=== PATIENT | male | born 1975 | race Caucasian/White ===

== ENCOUNTER 2022-05-18 08:17 | Outpatient (CLI) | payer OTHER, SELFPAY ==
--- NOTE | ~2022-05-18 | XR_ITS ---
EXAMINATION: XR abdomen/kub 1V DATE: 05/18/2022 08:33 INDICATION: Right flank pain. TECHNIQUE: A supine view of the abdomen on 2 radiographs was obtained. COMPARISON: Abdomen radiograph 07/08/2019, CT abdomen and pelvis 11/21/2013 FINDINGS: There are no dilated loops of bowel. Again seen is a 2 mm phlebolith in right pelvis. There are 3 mm and 4 mm calcifications in right pelvis that are new from 06/23/2019. There are 2 calcifica tions overlying right kidney measuring up to 5 mm. There are multiple calcifications overlying left k idney measuring up to 5 mm. IMPRESSION: 1. 3 mm and 4 mm calcifications in right pelvis that are new from 06/23/2019, which may be phlebolith s or distal ureteral stones. 2. Calcifications overlying the kidneys bilaterally that may be kidney stones. Reviewed, dictated and finalized at location B. IMPRESSION: 1. 3 mm and 4 mm calcifications in right pelvis that are new from 06/23/2019, w hich may be phleboliths or distal ureteral stones. 2. Calcifications overlying the kidneys bilaterally that may be kidney stones.
== END 2022-05-18 08:18 | disposition home or self-care (01) ==
PROVIDERS: PCP Family Medicine Sports Medicine; Visit Provider Urology
DX: R10.9 Unspecified abdominal pain (principal)
CPT/HCPCS: 74018

== ENCOUNTER → 2023-05-24 14:44 | Outpatient (CLI) | payer OTHER, SELFPAY ==
--- NOTE | ~2023-05-24 | XR_ITS ---
XR abdomen/kub 1V 05/24/2023 15:05 Indication: Kidney stones Procedure: KUB Comparison: 05/18/2022 Findings: There are multiple calcifications overlying the left kidney and left renal pelvis, consiste nt with renal stones. Bowel gas pattern nonobstructive with moderate colonic fecal loading. There is a stone overlying the lower pole of the right kidney. There is calcification at the L3 level on the l eft, possibly UPJ stone. Moderate lumbar spondylosis. Impression: 1: Bilateral nephrolithiasis with possible left UPJ stone. Reviewed, dictated and finalized at location A. Impression: 1: Bilateral nephrolithiasis with possible left UPJ stone.
== END ==
PROVIDERS: PCP Family Medicine; Visit Provider Nurse Practitioner Adult Health
DX: N20.0 Calculus of kidney (principal)
CPT/HCPCS: 74018

== ENCOUNTER 2023-05-25 01:22 | Emergency (ER) | payer OTHER, SELFPAY ==
--- NOTE | ~2023-05-25 | CT_ITS ---
EXAMINATION: CT abdomen pelvis wo con DATE: 05/25/2023 02:23 INDICATION: Flank pain. TECHNIQUE: Computed tomography (CT) of the abdomen and pelvis was performed without intravenous contr ast. Automated exposure control and iterative reconstruction technique were employed. The dose-length product was 1799.74 mGy-cm. COMPARISON: CT abdomen and pelvis 11/21/2013 FINDINGS: The visualized portions of the lung bases demonstrate minimal atelectasis. A calcified righ t lung nodule is consistent with old granulomatous disease. No pleural effusion. The heart size is no rmal. No pericardial effusion. There is a small sliding hiatal hernia. Partially visualized is mild l eft gynecomastia. The liver, gallbladder, and pancreas are normal. Calcifications in the spleen are c onsistent with old granulomatous disease. The adrenal glands are normal. There are cysts in the kidne ys measuring up to 2.7 cm on the left. There is cortical thinning of the kidneys. There are 4 stones in right kidney measuring up to 5 mm. There are 7 stones in left kidney measuring up to 5 mm. There i s mild left hydronephrosis. There is asymmetric edema around left kidney. There is a 6 mm stone in pr oximal left ureter. The prostate is mildly enlarged. There are no dilated loops of bowel. The appendi x is normal. There are no pathologically enlarged lymph nodes. There is no free intraperitoneal fluid . There is mild thoracic spondylosis and severe lumbar spondylosis. IMPRESSION: 1. 6 mm stone in proximal left ureter with mild left hydronephrosis. 2. Bilateral nonobstructing kidney stones. 3. Small sliding hiatal hernia. Reviewed, dictated and finalized at location E.
[2023-05-25 01:50] VITALS: BP 182/99; PULSE 74; RESP 16; TEMP 36.2; O2SAT 100
[2023-05-25 02:02] LABS: Alanine Aminotransferase 36 U/L (6-50); Albumin Level 4.7 g/dL (3.5-5.1); Alkaline Phosphatase 75 U/L (38-126); Anion Gap 9 mmol/L (8-16); Aspartate Amino Transferase 29 U/L (17-59); Bilirubin,Total 1.7 mg/dL (0.2-1.3); Blood Urea Nitrogen 22 mg/dL (9-20); Carbon Dioxide 27 mmol/L (22-30); Chloride 100 mmol/L (98-107); Estimated CRCL calculation 115 ml/min; Estimated Glomerular Filt Rate > 60; Glucose 127 mg/dL (65-110); Potassium 3.9 mmol/L (3.4-5.0); Sodium 136 mmol/L (137-145)
[2023-05-25 04:54] LABS: Appearance Urine Clear (Clear); Bacteria Urine None Seen /hpf; Bilirubin Urine Negative (Negative); Blood Urine 1+ (Negative); Color Urine Yellow (Yellow); Glucose Urine UA Negative (Negative); Ketones Urine Trace mg/dL (Negative); Leukocyte Esterase Ur Negative LEU/UL (Negative); Nitrate Urine Negative (Negative); Non Pathogenic Casts 0-2; Protein Urine Negative (Negative); RBC Urine 0-2 /hpf (0-2); Specific Grav Ur 1.018 (1.001-1.035); Squamous Epithelial Cell Urine None seen /hpf (Few); Urobilinogen Urine 0.2 mg/dL (<2.0); WBC Urine 0-5 /hpf; pH Urine 5.5 (5.0-9.0)
[2023-05-25 05:13] LABS: Add Urine Microscopic? YES
[2023-05-25 06:17] VITALS: BP 161/95; PULSE 99; RESP 14; O2SAT 98
[2023-05-25 06:25] LABS: Basophils Percent Auto 0.3 % (0.2-1.2); Eosinophils Percent Auto 0.2 % (0-4.4); Hemoglobin 15.3 g/dL (14.0-18.0); Immature Granulocyte Absolute 0.05 K/mm3 (0.00-0.031); Immature Granulocyte Percent A 0.5 % (0-0.5); Lymphocytes Absolute Auto 0.93 K/mm3 (0.9-3.2); Lymphocytes Percent Auto 8.6 % (18.3-44.2); Mean Corpuscular HGB Conc 33.3 g/dl (32-36); Mean Corpuscular Hemoglobin 29.5 pg (26-34); Mean Corpuscular Volume 88.8 fl (80-100); Mean Platelet Volume 9.8 fl (7.4-10.4); Monocytes Absolute Auto 0.6 K/mm3 (0.1-0.6); Monocytes Percent Auto 5.9 % (2.6-8.5); Neutrophils Absolute Auto 9.2 K/mm3 (1.3-6.7); Neutrophils Percent Auto 84.5 % (45.5-73.1); Platelet Count Result 242 k/mm3 (150-375); Red Blood Count 5.18 M/mm3 (4.6-6.20); Red Cell Distribution Width 11.8 % (11.5-14.5); White Blood Count 10.8 K/mm3 (4.5-10.0)
[2023-05-25 07:16] VITALS: BP 179/110; PULSE 78; RESP 20; O2SAT 100
--- NOTE | 2023-05-25 07:43 | ED.ABDPAIN ---
HPI - Abdominal Pain General Chief Complaint: Abdominal Pain Stated Complaint: flank pain, kidney stone Time Seen by Provider: 05/25/23 06:55 History of Present Illness HPI narrative: 47-year-old male with history of kidney stones presenting to the emergency department after being referred from the urology office for suspected kidney stone. Patient follows up with Dr. Estevez. Patient does describe left flank pain and did have associated nausea and vomiting. Patient was started on Flomax at the urology office. Related Data Home Medications Medication Instructions Recorded Confirmed allopurinol 300 mg tablet 300 mg PO DAILY 06/18/19 08/17/21 losartan 100 1 tablet PO DAILY 06/18/19 08/17/21 mg-hydrochlorothiazide 12.5 mg tablet Juice Plus 6 cap PO DAILY 07/14/19 08/17/21 tamsulosin 0.4 mg capsule 0.4 mg PO DAILY PRN 08/17/21 08/17/21 Allergies Allergy/AdvReac Type Severity Reaction Status Date / Time doxycycline AdvReac Severe Gastrointestinal Verified 05/25/23 07:17 Upset Review of Systems Review of Systems: All systems reviewed & are unremarkable except as noted in HPI and below PMFSH Past Medical History Medical History HTN (hypertension) Morbid obesity Surgical History Surgical History H/O lithotripsy S/P cystoscopy with ureteral stent placement Social History Social History Smoking status: Never smoker Exam Narrative: APPEARANCE: Well appearing, no pain, no distress, well-nourished. HEAD: normocephalic, atraumatic. EYES: PERRLA/EOMI, conjunctivae clear. NOSE: Normal no drainage EARS:TMS clear with good light reflex. THROAT: Pharynx clear, no exudate. NECK: Supple. No adenopathy, no masses. RESPIRATORY: Airway patent, respirations nonlabored. Clear to auscultation bilaterally, no rales, rhonchi, wheezing. CARDIOVASCULAR: Regular rate and rhythm without murmurs rubs or gallops. ABDOMINAL: Soft, nontender, nondistended, normal bowel sounds MUSCULOSKELETAL: Moves all extremities. Strength/ROM intact, No edema, No calf tenderness. NEURO: Alert. Cranial nerves II through XII intact. Grossly intact SKIN: Warm, dry. Normal Color Course Course Emergency Course: 47-year-old male presented to the emergency department for evaluation of left flank pain. CT scan does show a 6 mm proximal left ureteral stone. UA shows no evidence of infection. Patient's kidney function is similar to his baseline. Patient has a minor leukocytosis of 10.8 but is afebrile. Patient's pain was controlled at time of discharge. Patient was encouraged of close follow-up with urology. Vital Signs Vital signs: Vital Signs Temperature 97.1 F L 05/25/23 01:50 Pulse Rate 74 05/25/23 01:50 Respiratory Rate 16 05/25/23 01:50 Blood Pressure 182/99 H 05/25/23 01:50 Pulse Oximetry 100 05/25/23 01:50 Oxygen Delivery Room Air 05/25/23 01:50 Temperature 97.1 F L 05/25/23 01:50 Pulse Rate 78 05/25/23 08:45 Respiratory Rate 18 05/25/23 08:45 Blood Pressure 153/76 H 05/25/23 08:45 Pulse Oximetry 98 05/25/23 08:45 Oxygen Delivery Room Air 05/25/23 01:50 MDM - Abdominal Pain Differential Diagnosis Differential diagnosis: Likely acute appendicitis, calculus of kidney, constipation, gastroenteritis, pancreatitis and small bowel obstruction Lab Data Attestation: I reviewed the patient's lab results. 05/25/23 06:20 05/25/23 01:43 Labs: Lab Results 05/25/23 05/25/23 05/25/23 Range/Units 01:43 04:36 06:20 WBC 10.8 H (4.5-10.0) K/mm3 RBC 5.18 (4.6-6.20) M/mm3 Hgb 15.3 (14.0-18.0) g/dL Hct 46.0 (42.0-52.0) % MCV 88.8 (80-100) fl MCH 29.5 (26-34) pg MCHC 33.3 (32-36) g/dl RDW 11.8 (11.5-14.5) % Plt Count 242 (150-375) k/mm3 MPV 9.8 (7.4-10.4)
[2023-05-25] MEDS: ONDANSETRON INJ 4 MG/2 ML VIAL IV PUSH (07:49)
[2023-05-25] MEDS: SODIUM CHLORIDE 0.9% IV 1,000 ML 999 ML IV CONT (07:49)
[2023-05-25] MEDS: HYDROmorphone HCL INJ (*CRX) 1 MG/ML SYR IV PUSH (07:50)
[2023-05-25 08:45] VITALS: BP 153/76; PULSE 78; RESP 18; O2SAT 98
== END 2023-05-25 08:45 | disposition home or self-care (01) ==
PROVIDERS: Emergency Medicine; Emergency Provider Emergency Medicine; PCP Family Medicine
DX: N13.2 Hydronephrosis with renal and ureteral calculous obstruction (principal); I10 Essential (primary) hypertension; E66.01 Morbid (severe) obesity due to excess calories; Z68.41 Body mass index [BMI] 40.0-44.9, adult; K44.9 Diaphragmatic hernia without obstruction or gangrene
CPT/HCPCS: 36415; 74176; 80053; 81001; 85025; 96361; 96374; 96375; 99284; J1170; J2405; J7030

== ENCOUNTER → 2023-08-01 14:23 | Outpatient (CLI) | payer OTHER, SELFPAY ==
--- NOTE | ~2023-08-01 | XR_ITS ---
EXAM: XR abdomen/kub 1V DATE: 08/01/2023 14:42 HISTORY: Calculus of kidney . COMPARISON: 05/24/2023; CT abdomen pelvis 05/25/2023. FINDINGS: Normal bowel gas pattern. No organomegaly. The 6 mm proximal left ureteral stone is no soco kaushik visualized. Multiple left renal calcifications measuring up to 5 mm. Multiple right renal calcifi cations measuring up to 5 mm. Overall position and number of renal calcifications is grossly unchange d. Lumbar degenerative disc disease. Mild bilateral hip osteoarthritis. IMPRESSION: Interval passage or retrieval of the previously described proximal left ureteral stone, o therwise grossly unchanged bilateral nephrolithiasis. Reviewed, dictated and finalized at location K. SETTER SUPERVISOR IMPRESSION: Interval passage or retrieval of the previously described proximal left ureteral stone, otherwise grossly unchanged bilateral nephrolithiasis.
== END ==
PROVIDERS: PCP Urology; Visit Provider Urology
DX: N20.0 Calculus of kidney (principal)
CPT/HCPCS: 74018

== ENCOUNTER 2023-08-20 15:20 | Outpatient (CLI) | payer OTHER, SELFPAY ==
--- NOTE | 2023-08-20 15:31 | ECG_ITS ---
Measurements Intervals [place] Rate: 66 P: 46 OK: 176 QRS: -6 QRSD: 94 T: 25 QT: 371 QTc: 391 Interpretive Statements SINUS RHYTHM WITH SINUS ARRHYTHMIA BASELINE ARTIFACT- I, III, AVR, AVL, AVF, V4-V6 NORMAL ECG COMPARED TO ECG 10/31/2018 06:31:26 SINUS RHYTHM NOW PRESENT SINUS ARRHYTHMIA NOW PRESENT Electronically Signed On 08-20-2023 16:10:31 OFFICE MESSENGER by Arvind Cunningham D.O.
[2023-08-20 16:12] LABS: INR 0.9
[2023-08-20 16:13] LABS: Partial Thromboplastin Time 29.5 SECONDS (22.3-36.8)
[2023-08-20 16:35] LABS: Anion Gap 7 mmol/L (8-16); Blood Urea Nitrogen 17 mg/dL (9-20); Carbon Dioxide 33 mmol/L (22-30); Chloride 100 mmol/L (98-107); Estimated Glomerular Filt Rate > 60; Glucose 54 mg/dL (65-110); Potassium 4.1 mmol/L (3.4-5.0); Sodium 140 mmol/L (137-145)
== END 2023-08-20 15:21 | disposition home or self-care (01) ==
LOC: ANHSURGERY 15:23
PROVIDERS: Anesthesiology; Visit Provider Urology
DX: Z01.818 Encounter for other preprocedural examination (principal); N20.0 Calculus of kidney; I10 Essential (primary) hypertension; Z79.899 Other long term (current) drug therapy
CPT/HCPCS: 36415; 80048; 85610; 85730; 87086; 93005

== ENCOUNTER 2023-08-30 00:55 | Day surgery (SDC) | payer OTHER, SELFPAY ==
[2023-08-19 10:25] VITALS: BMI 45.6
--- NOTE | 2023-08-19 10:29 | PC.NURSE ---
Report to the Outpatient Waiting Room, entrance under the green pavilion located off [facility], at time 6:00 on date 08/30/23. Planned Procedure Time: 7:30. Time changes happen often and if your time is changed the preop area will call you the afternoon before. - You and your visitor will be asked to self-screen and do not enter if you have any COVID symptoms. - A mask is optional within the hospital at this time. Patients may have clear liquids (water, carbonated beverages, clear teas, apple juice) until 3 hours prior to surgery (4:30) with a maximum of 20 ounces. - No food from midnight until time of surgery Take the following medications with a SIP of water the morning of surgery: NONE DO NOT STOP ANY OF YOUR OTHER PRESCRIPTION MEDICATIONS PRIOR TO SURGERY ?EXCEPT THE FOLLOWING Medications to discontinue per physician: VITAMINS/SUPPLEMENTS Date to take last dose: 08/26/23 Please no make-up, nail [place], hairspray, perfume, deodorant, or body powder the day of surgery. No jewelry (including any body piercings) or valuables the day of surgery, leave them at home. Please take a shower or bath the night before, or the morning of, surgery with an antibacterial soap. Wear comfortable, loose fitting clothing. - Jewelry must be removed prior to entering the operating room. Rings and piercings that are not removed may be cut off. - The hospital will not accept responsibility for valuables. - Please leave all valuables, including medications, at home the day of surgery. If you are going home after surgery, a licensed bulk delivery driver must drive you home. - NO public transportation without another adult if you receive anesthesia. - We recommend that an adult stay with you for 24 hours following discharge. - We also recommend that you do not drive, make important decision, drink alcoholic beverages, or take any drugs that were not prescribed by your health care provider for at least 24 hours after your discharge time. Follow any additional instructions given to you from your surgeon. If you or anyone in your household have experienced Covid symptoms in the past week, please notify your surgeon or the nurse liaison at the phone number below for possible testing. Telephone instructions given to PT - ELEONORA SOLER and asked if any additional questions and then verbalized understanding. Patient advised to call surgeon office or pre surgery nurse liaison [phone] if any additional questions.
--- NOTE | ~2023-08-30 | XR_ITS ---
EXAMINATION: XR abdomen/kub 1V DATE: 08/30/2023 06:20 INDICATION: Right-sided kidney stone. TECHNIQUE: A supine view of the abdomen on 3 radiographs was obtained. COMPARISON: Abdomen radiographs 08/01/2023, CT abdomen and pelvis 05/25/2023 FINDINGS: There are no dilated loops of bowel. There are two 5 mm stones in right kidney. There are l east 3 stones in left kidney measuring up to 4 mm. There are phleboliths in right pelvis. IMPRESSION: 1. Bilateral kidney stones. Reviewed, dictated and finalized at location E. PATIONAL HEALTH AND SAFETY MANAGER IMPRESSION: 1. Bilateral kidney stones.
[2023-08-30 07:00] VITALS: BP 125/76; PULSE 98; RESP 14; TEMP 36.4; O2SAT 100
[2023-08-30] MEDS: LACTATED RINGERS 1,000 ML 30 ML IV CONT (07:00)
--- NOTE | 2023-08-30 07:19 | P.PNAN_ITS ---
Anes - Initial Pre Proc Eval Procedure: Operation Date: 08/30/23 07:30 Proposed Procedures p Right Renal Extracorporeal Shock Wave Lithotripsy - Chance Estevez MD Date/Time: 08/30/23 07:19 Surgeon: Chance Estevez MD Pre Op Diagnosis: right renal kidney stones Patient Data Age: 48 Gender: M Height: 1.87 m Weight: 159 kg Allergies Allergy/AdvReac Type Severity Reaction Status Date / Time doxycycline AdvReac Severe Gastrointestinal Verified 08/19/23 10:23 Upset Home Medications Medication Instructions Recorded Confirmed Type allopurinol 300 mg tablet 300 mg PO DAILY 06/18/19 08/19/23 History losartan 100 1 tablet PO DAILY 06/18/19 08/19/23 History mg-hydrochlorothiazide 12.5 mg tablet cholecalciferol (vitamin D3) 125 125 mcg PO DAILY 08/19/23 08/19/23 History mcg (5,000 unit) tablet (Vitamin D3) cyanocobalamin (vitamin B-12) 1,000 mcg PO DAILY 08/19/23 08/19/23 History 1,000 mcg tablet Patient hx anesthesia problems: none Family hx anesthesia problems: none Results Review: All pre-operative results and documents have been reviewed as part of the pre- operative evaluation. [facility] Past Medical History Medical History HTN (hypertension) Morbid obesity Surgical History Surgical History H/O lithotripsy S/P cystoscopy with ureteral stent placement Social History Social History Smoking status: Never smoker Alcohol intake: current Drinks per week: 2 Substance use: never Substance use type: does not use Living arrangements: with family Spiritual care concerns: No Anes - Eval Final PreProcedure Day of Procedure 08/30/23 07:19 Patient weight: morbidly obese Heart: regular rate and rhythm Lungs: clear to auscultation Airway: Mallampati scale class III Neurological: alert and oriented Last oral intake: >/= 8 hours ASA classification: III Emergent: no Anesthetic plan: proceed Anesthesia type and monitoring: general LMA and standard monitoring Results Review: All pre-operative results and documents have been reviewed as part of the pre- operative evaluation. Informed Consent: The patient's anesthetic plan and its attendant risks and benefits were discussed with the patient/family/POA. Questions were solicited and answers provided to the satisfaction of the patient/family/POA.
--- NOTE | 2023-08-30 07:28 | WPDHPUPDATE1 ---
History and Physical Update Update Date/Time: 08/30/23 07:28 History and Physical has been reviewed, including an updated exam of the patient. There are NO changes in the patient's condition. Risks, benefits, and alternatives have been discussed and questions answered. Patient agrees to proceed with procedure. Proceed with right renal eswl
[2023-08-30] MEDS: ceFAZolin 3 GM/D5W 100 ML 100 ML IVPB (07:45)
[2023-08-30 08:30] VITALS: BP 145/95; PULSE 62; RESP 12; TEMP 36.2; O2SAT 98
--- NOTE | 2023-08-30 08:31 | W.PM.PROC2 ---
Procedure Note - Detailed Date of Procedure 08/30/23 Pre-op Diagnosis right renal kidney stones Post-op Diagnosis Same Procedure Performed Lithotripsy of right renal calculi Surgeon Chance Estevez MD Anesthesia General Description of Procedure Patient is taken to the operative suite correctly identified. Once anesthesia was obtained 2 stones were visible on fluoroscopy at this time. The lower pole stone was visualized. One thousand shocks were given to the stone. We then moved to the 2nd stone the remaining 1500 shocks were given. Patient tolerated procedure well without any complications and was taken recovery stable condition. He will follow-up in 7-10 days with KUB. This completes dictation. Please send a copy of op note to my office. Estimated Blood Loss 0 Drains No Packing No Pathology None sent Complications No immediate complications Condition Stable Disposition PACU
[2023-08-30 08:45] VITALS: BP 125/86; PULSE 57; RESP 12; O2SAT 95
[2023-08-30 09:00] VITALS: BP 118/78; PULSE 58; RESP 12; O2SAT 95
[2023-08-30 09:11] VITALS: BP 133/103; PULSE 75
[2023-08-30 09:40] VITALS: BP 128/83; PULSE 61
== END 2023-08-30 09:51 | disposition home or self-care (01) ==
PROVIDERS: Visit Provider Urology
PROC: (CPT 50590; principal; 2023-08-30 07:30)
DX: N20.0 Calculus of kidney (principal); I10 Essential (primary) hypertension
CPT/HCPCS: 50590; 36415; 74018; 80048; 85610; 85730; 87086; 93005; J0690; J1100; J1170; J2250; J2405; J2704; J7120

== ENCOUNTER → 2023-09-06 14:46 | Outpatient (CLI) | payer OTHER, SELFPAY ==
--- NOTE | ~2023-09-06 | XR_ITS ---
EXAMINATION: XR abdomen/kub 1V DATE: 09/06/2023 15:25 INDICATION: Calculus of kidney. Left lower quadrant abdominal pain. TECHNIQUE: A supine view of the abdomen on 2 radiographs was obtained. COMPARISON: CT abdomen and pelvis 05/25/2023 FINDINGS: There are no dilated loops of bowel. There is a moderate volume of stool in the colon. Ther e are phleboliths in the pelvis. The kidneys are obscured by bowel. There is a 4 mm stone in left kid elise. IMPRESSION: 1. 4 mm stone in left kidney. Reviewed, dictated and finalized at location E. BBER MACHINE TENDER
== END ==
PROVIDERS: PCP Urology; Visit Provider Nurse Practitioner Family
DX: N20.0 Calculus of kidney (principal)
CPT/HCPCS: 74018

== ENCOUNTER → 2023-09-20 13:44 | Outpatient (CLI) | payer OTHER, SELFPAY ==
--- NOTE | ~2023-09-20 | CT_ITS ---
EXAMINATION: CT abdomen wo/w con DATE: 09/20/2023 14:25 INDICATION: Renal mass. TECHNIQUE: Computed tomography (CT) of the abdomen was performed without and with 100 mL Omnipaque 35 0 intravenous contrast. Automated exposure control and iterative reconstruction technique were employ ed. The dose-length product was 1693.64 mGy-cm. COMPARISON: CT abdomen and pelvis 05/25/2023 FINDINGS: The visualized portions of the lung bases demonstrate a calcified right lung nodule and rebekah cified right hilar lymph nodes, consistent with old granulomatous disease. No pleural effusion. The h eart size is normal. No pericardial effusion. There is a small sliding hiatal hernia. The liver and g allbladder are normal. Calcifications in the spleen are consistent with old granulomatous disease. Th e pancreas and adrenal glands are normal. There are cysts in the kidneys measuring up to 4.0 cm on th e right. There is a 3 mm stone in right kidney. There are 5 stones in left kidney measuring up to 5 m m. There are no dilated loops of bowel. There are no pathologically enlarged lymph nodes. There is no free intraperitoneal fluid. There is severe lumbar spondylosis and mild thoracic spondylosis. IMPRESSION: 1. Benign cysts in the kidneys. 2. Nonobstructing bilateral kidney stones. Reviewed, dictated and finalized at location E. [employer]ONICS WARFARE TECHNICIAN
[2023-09-20 14:16] LABS: Estimated Glomerular Filt Rate > 60
== END ==
PROVIDERS: PCP Urology; Visit Provider Urology
DX: N28.1 Cyst of kidney, acquired (principal); N20.0 Calculus of kidney
CPT/HCPCS: 74170; Q9967

== ENCOUNTER 2024-04-22 14:48 | Outpatient (CLI) | payer OTHER, SELFPAY ==
--- NOTE | ~2024-04-22 | XR_ITS ---
XR abdomen/kub 1V Ordering provider: Chance Estevez MD History: . BILATERAL KIDNEY STONE . Comparison: September 06, 2023 FINDINGS: BOWEL: Nonobstructive bowel gas pattern. ORGANOMEGALY: None. SIGNIFICANT PATHOLOGIC CALCIFICATIONS: Stone is seen in the left kidney unchanged. OTHER: Multilevel degenerative disc. No free air is seen under the diaphragm. IMPRESSION: NO ACUTE ABDOMINAL FINDINGS. Left kidney stone. Reviewed, dictated and finalized at location A.
== END 2024-04-22 14:49 | disposition home or self-care (01) ==
LOC: MICIMG 14:49
PROVIDERS: PCP Urology; Visit Provider Urology
DX: N20.0 Calculus of kidney (principal)
CPT/HCPCS: 74018